=== PATIENT | male | born 1970 | race Caucasian/White ===

== ENCOUNTER 2020-08-28 11:35 | Emergency (ER) | payer BC ==
[2020-08-28] MEDS: Bacitracin/Neomycin/Polymyxin B Oint 0.9 GM U/D Packet ONE (17:34)
[2020-08-28] MEDS: Lidocaine 2% 5 ML SDV INJECT ONE (17:35)
--- NOTE | 2020-08-28 22:47 | EDM.PDOC ---
ED HPI GENERAL MEDICAL PROBLEM - General Chief Complaint: Upper Extremity Injury/Pain Stated Complaint: right hand pinky injury Time Seen by Provider: 08/28/20 11:40 Source of Information: Reports: Patient History Limitations: Reports: No Limitations - History of Present Illness INITIAL COMMENTS - FREE TEXT/NARRATIVE: Pt. presents to ER with complaints of injury to 6th digit R hand. Pt. states that he got the finger caught in an 1800 pound piece of metal at work, causing a laceration to the base of the little finger. He works for [employer]. Tetanus is up to date. Denies any numbness/tingling in the distal portion of the extremity. Denies any injury elsewhere. 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) Right Hand Pain Score (Numeric/FACES): 3 - Related Data Allergies Allergy/AdvReac Type Severity Reaction Status Date / Time Sulfa (Sulfonamide Allergy Rash Verified 08/28/20 11:45 Antibiotics) Home Meds: Home Meds Acetaminophen 1,000 mg PO DAILY 08/28/20 [History] Econazole/Niacinamide [Imioxia 1%-4% Cream] 1 dose TOP DAILY 08/28/20 [History] Ibuprofen 400 mg PO Q6H 08/28/20 [History] Urea [Urea 40% Crm] 1 dose TOP DAILY 08/28/20 [History] Past Medical History - Past Health History Medical/Surgical History: Denies Medical/Surgical History Dermatologic History: Reports: Other (See Below) Other Dermatologic History: venous stasis ulcer left foot Social & Family History - Tobacco Use Tobacco Use Status *Q: Unknown Ever Used Tobacco Review of Systems - Review of Systems Review Of Systems: Comprehensive ROS is negative, except as noted in HPI. ED EXAM, GENERAL - Physical Exam Exam: See Below Exam Limited By: No Limitations General Appearance: Alert, WD/WN, No Apparent Distress Extremities: Normal Capillary Refill, Other (approx 2 cm horizontal laceration to dorsum of proximal finger (5th digit of R hand). No obvious deformity noted.). No: Slow Capillary Refill Neurological: Alert, Oriented, CN II-XII Intact, Normal Cognition, Normal Reflexes, No Motor/Sensory Deficits ED TRAUMA EXTREMITY PROCEDURES - Laceration/Wound Repair Right Dorsal Digit - 5th (Baby) Lac/Wound Length In cm: 2 Appearance: Subcutaneous, Irregular Distal NVT: Neuro & Vascular Intact, No Tendon Injury Anesthetic Type: Local Local Anesthesia - Lidocaine (Xylocaine): 2% Plain Local Anesthetic Volume: 3cc Skin Prep: Chlorhexidine (Hibiciens), Saline Saline Irrigation (cc's): 500 Exploration/Debridement/Repair: Wound Explored, Wound Margins Revised Closed With: Sutures Suture Size: 4-0 # of Sutures: 4 Suture Type: Nylon Course - Vital Signs Last Recorded V/S: Last Vital Signs Temp 37.1 C 08/28/20 11:40 Pulse 87 08/28/20 11:40 Resp 18 08/28/20 11:40 BP 131/74 08/28/20 11:40 Pulse Ox 100 08/28/20 11:40 - Orders/Labs/Meds Orders: Active Orders 24 hr Category Date Time Status Fingers Fifth Digit Rt F9 [CR] Stat Exams 08/28/20 11:55 Taken Meds: Medications Discontinued Medications Generic Name Dose Route Start Last Admin Trade Name Rodrigo PRN Reason Stop Dose Admin Lidocaine 5 ml 08/28/20 12:28 08/28/20 17:35 Lidocaine 2% 5 Ml Sdv INJECT 08/28/20 12:29 5 ml ONETIME ONE Administration Neomycin/Polymyxin/Bacitracin Confirm 08/28/20 13:21 08/28/20 17:34 Bacitracin/Neomycin/Polymyxin B Oint 0.9 Gm U/D Packet Administered 08/28/20 13:22 1 each Dose Administration 1 each .ROUTE .STK-MED ONE Departure - Departure Time of Disposition: 13:30 Disposition: Home, Self-Care 01 Condition: Good Clinical Impression: Finger laceration - Discharge Information Instructions: Laceration Care, Adult Referrals: Andi Dumont PA [Primary Care Provider] - Forms: ED Department Discharge Additional Instructions: Sutures out in 14 days Off work until 08/30/2020 Keep bandage on until then. Keep open to air as much as possible, but cover if you anticipate it getting dirty. No lifting more than 20 pounds until sutures are removed Sutures out in clinic in 2 weeks Sepsis Event Note (ED) - Evaluation Sepsis Screening Result: No Definite Risk - Focused Exam Vital Signs: Vital Signs Temp Pulse Resp BP Pulse Ox 08/28/20 11:40 37.1 C 87 18 131/74 100 - Problem List Review Problem List Initiated/Reviewed/Updated: Yes - My Orders Last 24 Hours: My Active Orders 08/28/20 11:55 Fingers Fifth Digit Rt F9 [CR] Stat - Assessment/Plan Last 24 Hours: My Active Orders 08/28/20 11:55 Fingers Fifth Digit Rt F9 [CR] Stat Plan: Sutures out in 14 days Off work until 08/30/2020 Keep bandage on until then. Keep open to air as much as possible, but cover if you anticipate it getting dirty. No lifting more than 20 pounds until sutures are removed Sutures out in clinic in 2 weeks
== END 2020-08-28 13:37 | disposition home or self-care (01) ==
LOC: LL.ED 11:35
DX: S61.216A Laceration without foreign body of right little finger without damage to nail, initial encounter (principal); Z88.2 Allergy status to sulfonamides; W26.8XXA Contact with other sharp object(s), not elsewhere classified, initial encounter; Y99.0 Civilian activity done for income or pay
CPT/HCPCS: 12001; 73140-F9; 99283; 99283-25